=== PATIENT | male | born 1955 | race Caucasian/White ===

== ENCOUNTER 2016-10-12 21:05 | Emergency (ER) | payer OTHER ==
[~2016-10-12] VITALS: Ht 177.8 cm; Wt 108.7 kg
[2016-10-12 21:07] VITALS: Ht 177.8 cm; Wt 108.7 kg
[2016-10-12] MEDS ORDERED: OXYCODONE HCL IR 5 MG TAB (IMMEDIATE RELEASE) PO STA (21:19)
[2016-10-12] MEDS ORDERED: ASPI81TA28 PO (21:55)
[2016-10-12] MEDS ORDERED: OMEG10007 PO (21:56)
[2016-10-12] MEDS ORDERED: DIPH25TA61 PO (21:57)
[2016-10-12] MEDS ORDERED: GUAI1TAB55 PO (21:59)
[2016-10-12] MEDS ORDERED: PSEU12TA PO (22:00)
[2016-10-12] MEDS ORDERED: CALC500C73 PO (22:01)
[2016-10-12] MEDS ORDERED: MULT-506 PO (22:02)
--- NOTE | 2016-10-12 22:14 | DIAGNOSTIC IMAGING REPORT ---
LEFT SHOULDER 2 VIEWS; LEFT HUMERUS 2 VIEWS CLINICAL HISTORY: Fall with left shoulder injury. FINDINGS: 2 views of the left shoulder with AP and lateral views of the left humerus are obtained. No prior studies are available for comparison at the time of dictation. The skeletal structures are osteopenic. There is a minimally distracted avulsion fracture of the greater tuberosity of the humeral head. Fracture does not extend through the humeral neck. The remainder of the humerus appears intact. No additional fracture is seen in the shoulder. The glenohumeral and acromioclavicular joints appear maintained. The elbow joint is grossly normal as visualized. Soft tissue edema overlies the left humeral head. The visualized left lung parenchyma appears clear. Numerous compression deformities are identified in the imaged thoracic spine. IMPRESSION: 1. There is a minimally distracted avulsion fracture of the greater tuberosity of the humeral head. Fracture does not extend through the humeral neck. 2. No additional fracture is seen. No shoulder dislocation is identified. 3. Numerous mild thoracic compression deformities are noted and age indeterminant. Electronically signed by: Ronnie Garcia M.D. 10/12/2016 10:12 PM Dictated Date/Time: 10/12/2016 10:09 PM
[2016-10-12] MEDS ORDERED: ONDANSETRON HOME PACK 4MG OD TAB PO ONE (22:30)
[2016-10-12] MEDS ORDERED: OXYCODONE IR HOME PACK PO ONE (22:30)
--- NOTE | 2016-10-12 22:41 | EMERGENCY ROOM VISIT NOTE ---
ED Visit Note First contact with patient: 21:10 CHIEF COMPLAINT: Shoulder pain HISTORY OF PRESENT ILLNESS: This 60-year-old male patient presents to the emergency department with his complaining of pain in the left shoulder after injury approximately one hour ago. Patient states he was playing with his grandchildren and fell directly onto the left shoulder. There is significant limitation of motion of the arm because of the pain. The pain is moderate, constant and increases with motion of the hand and arm. The patient states the pain is aching, throbbing and 7/10. The patient has taken ibuprofen 800 mg with minimal relief of the pain. No previous significant previous shoulder disease or injury. No numbness or tingling. No neck pain and no back pain. No chest pain or shortness of breath. No abdominal pain or nausea/ vomiting. No cough. REVIEW OF SYSTEMS: A 6 system review of systems was performed with positives and pertinent negatives in the HPI. ALLERGIES: See chart MEDICATIONS: See chart PMH: See chart SOCIAL HISTORY: See chart PHYSICAL EXAM: Vital Signs: Reviewed nurse's notes, vital signs stable. GENERAL : Cooperative and pleasant, in no acute distress, but appears to be in pain, well-developed, well-nourished. MUSCULOSKELETAL: There is no deformity in the contour of the left shoulder and there are no manasa deformities noted. There is no sulcus sign. There is tenderness over the proximal humerus. The patient's range of motion is significantly limited, worse with abduction and external rotation movements, better with abduction and internal rotation. Supraspinatus strength 5/5. There is no clavicle tenderness. No tenderness of the elbow, wrist , or hand. Wellness Nurse Rn strength 5/5. Radial pulse 2+. NECK: No tenderness to palpation over the cervical spine. Full range of motion without pain. HEART: Regular rate and rhythm without murmurs gallops or rubs. LUNGS: Clear to auscultation bilaterally without wheezes, rales or rhonchi. No accessory muscle use. No retractions. NEURO: The patient is alert and oriented to person, place, and time. Normal sensation to light and sharp touch. Capillary refill less than 2 seconds. EMERGENCY DEPARTMENT COURSE: I examined the patient. Differential diagnosis includes clavicle fracture, shoulder fracture, shoulder dislocation, humerus fracture, contusion, sprain/strain. An X-ray of the left humerus and left shoulder was reviewed by myself and radiologist and shows acute fracture of the proximal humerus tuberosity without extension into the humeral neck or intra- articular. Patient's pain improved with oxycodone. Patient was placed in a sling and instructed on follow-up plans, he verbalized understanding. Patient discharged in good condition, ambulatory. Current/Historical Medications Scheduled Aspirin (Aspirin Ec), 81 MG PO DAILY Calcium Carbonate (Calcium), 500 MG PO DAILY Diphenhydramine Hcl (Allergy), 25 MG PO DAILY Fish Oil ([place]-3), 2 CAP PO DAILY Guaifenesin Ext Rel (Mucinex Ext Rel), 600 MG PO DAILY Multivitamin (Multivitamin), 1 TAB PO DAILY Pseudoephedrine Hcl (Decongestant 12HOUR Maxim), 120 MG PO DAILY Scheduled PRN Oxycodone Ir (Roxicodone Ir), 1-2 TAB PO Q6H PRN for Severe Pain Allergies Coded Allergies: Alcohol (Verified Allergy, Unknown, swelling, 10/12/16) Shellfish (Verified Allergy, Unknown, swelling, 10/12/16) Vital Signs Date Time Temp Pulse Resp B/P (MAP) Pulse Ox O2 Delivery O2 Flow Rate FiO2 10/12/16 23:02 67 18 121/69 97 10/12/16 21:07 75 18 149/84 97 Room Air Medications Administered Medications (Trade) Dose Ordered Sig/Zack Route Start Time Stop Time Status Last Admin Dose Admin Oxycodone HCl (Roxicodone Immediate Rel Tab) 5 mg NOW STAT PO 10/12/16 21:19 10/12/16 21:21 DC 10/12/16 21:19 5 MG Oxycodone HCl (Roxicodone Immediate Rel 5MG Home Pack) 1 homepack UD ONCE PO 10/12/16 22:30 10/12/16 22:33 DC 10/12/16 22:30 1 HOMEPACK Ondansetron HCl (ZOFRAN ODT 4MG Home Pack) 1 homepack UD ONCE PO 10/12/16 22:30 10/12/16 22:33 DC 10/12/16 22:30 1 HOMEPACK Ondansetron HCl (Zofran Odt) 4 mg ONE ONCE PO 10/12/16 22:45 10/12/16 22:46 DC 10/12/16 22:45 4 MG Departure Information Impression Primary Impression: Fracture of humerus, proximal, left, closed Dispostion Home / Self-Care Condition GOOD Prescriptions Oxycodone Ir (Roxicodone Ir) 5 Mg Tab 1-2 TAB PO Q6H Y for Severe Pain for 3 Days, #24 TAB Prov: Lesli Colbert CRNP 10/12/16 Referrals No Doctor, Assigned (PCP) Patient Instructions ED Fx Shoulder, My [facility] Additional Instructions Wear the sling at all times for comfort. The sling may be removed for bathing purposes only. Apply ice to the shoulder intermittently and frequently over the next 24 hours. Ibuprofen 600 mg and Tylenol 1000 mg every 6 hours if needed for pain. You may take the oxycodone every 4-6 hours as needed for severe pain. This is a narcotic will make you drowsy, do not drive, operate machinery, or drink alcohol while taking this medication. Follow-up with your family doctor for referral to see an orthopedic surgeon in the next week. He will need to keep the arm in the sling until cleared by orthopedics. Problem Qualifiers Primary Impression: Fracture of humerus, proximal, left, closed Encounter type: initial encounter Fracture morphology: other fracture Fracture alignment: nondisplaced Qualified Codes: S42.295A - Other nondisplaced fracture of upper end of left humerus, initial encounter for closed fracture
[2016-10-12] MEDS ORDERED: OXYC1TAB3 PO (22:43)
[2016-10-12] MEDS ORDERED: ONDANSETRON 4MG OD TAB PO ONE (22:45)
[2016-10-12 23:02] VITALS: BP 121/69; PULSE 67; O2SAT 97
== END 2016-10-12 23:04 | disposition home or self-care (01) ==
LOC: C.EDB 21:07 → C.EDD 23:04
DX: S42.295A Other nondisplaced fracture of upper end of left humerus, initial encounter for closed fracture (principal); W19.XXXA Unspecified fall, initial encounter; Y92.89 Other specified places as the place of occurrence of the external cause; Z79.82 Long term (current) use of aspirin; Z79.899 Other long term (current) drug therapy